=== PATIENT | female | born 1965 | race Caucasian/White ===

== ENCOUNTER 2018-01-24 10:30 | Inpatient (IN) | payer MEDICARE, MEDICAID ==
[~2018-01-24] VITALS: Ht 172.7 cm; Wt 83.9 kg
[2018-01-24] MEDS ORDERED: VITA1TAB56 PO (13:16)
[2018-01-24] MEDS ORDERED: BENZ1TAB7 PO (13:16)
[2018-01-24] MEDS ORDERED: FERR325T23 PO (13:16)
[2018-01-24] MEDS ORDERED: ACET1TAB14 PO (13:16)
[2018-01-24] MEDS ORDERED: AMPH30CA3 PO (13:16)
[2018-01-24] MEDS ORDERED: CYAN100096 PO (13:16)
[2018-01-24 13:30] VITALS: BP 131/78
[2018-01-24] MEDS ORDERED: MAGNESIUM HYDROXIDE 30 ML UDC PO PRN (14:30)
[2018-01-24] MEDS ORDERED: ACETAMINOPHEN 325 MG TABLET PO PRN (14:30)
[2018-01-24] MEDS ORDERED: MAG HYDROX/AL HYDROX/SIMETH 30 ML UDC PO PRN (14:30)
[2018-01-24] MEDS ORDERED: ZOLPIDEM TARTRATE 5 MG TABLET PO PRN (14:30)
[2018-01-24] MEDS ORDERED: ONDANSETRON HCL/PF 4 MG/2 ML VIAL IVP PRN (14:30)
[2018-01-24] MEDS ORDERED: VANCOMYCIN 1 GM in IV NS 0.9% 250 ML IV SCH ×4 (14:30)
[2018-01-24] MEDS ORDERED: HYDROCODONE/APAP 5/325MG 1 EACH TABLET PO PRN (14:30)
[2018-01-24] MEDS ORDERED: HYDROCODONE/APAP 10/325MG 1 EA TABLET PO PRN (14:30)
[2018-01-24] MEDS ORDERED: Z GUARD REMEDY 2 OZ OINT TP PRN (14:30)
[2018-01-24 15:27] LABS: CALCIUM, SERUM 8.7 mg/dL (8.5-10.1); CREATININE 0.9 mg/dL (0.6-1.3); POTASSIUM 4.1 mmol/L (3.5-5.1)
[2018-01-24] MEDS ORDERED: FEE PK DOSING 1 MIN EA MC ONE (15:53)
[2018-01-24 16:00] VITALS: BP 146/83
[2018-01-24] MEDS: BENZTROPINE MESYLATE (1 MG) 1 MG TABLET PO SCH (17:26)
[2018-01-24] MEDS: IV NS 0.9% 1,000 ML IV PRN (17:27)
[2018-01-24] MEDS: VANCOMYCIN 0.75 GM in IV NS 0.9% 250 ML IV SCH (17:30)
--- NOTE | 2018-01-24 18:30 | NUR ---
DIRECTOR OF OPERATIONS SUPPORT NOTE RECEIVED PT. PT IS A DIRECT ADMISSION FROM [facility]. PT IS BEING ADMITTED FOR CONTINUED TX OF LLE CELLULITIS WITH ABX THERAPY. A/OX4, NO S/S OF RESP DISTRESS OR SOB. NO C/O PAIN AT THIS TIME. WOUND NOTED ON LLE, R WRIST AND SCRATCHES NOTED ON ABDOMEN. IV SITE LOCATED ON LEFT AC 20G CURRENTLY SL. ADMISSION ORDERS FROM DR. JIMENES RECEIVED. SAFETY MEASURES IN PLACE, CALL LIGHT WITHIN REACH. WILL CONTINUE TO MONITOR.
--- NOTE | 2018-01-24 18:52 | NUR ---
RN CLOSING NOTE PT IN BED RESTING. NO S/S OF RESP DISTRESS OR SOB. NO C/O PAIN. PT WOUNDS LEFT OPEN TO AIR. WOUND CONSULT ORDERED. SAFETY MEASURES IN PLACE, CALL LIGHT WITHIN REACH. WILL ENDORSE TO NIGHT SHFIT FOR SYBIL.
--- NOTE | 2018-01-24 19:45 | NUR ---
RN INITIAL NOTES: RECEIVED REPORT FROM CRIS GÓMEZ. PT IN BED, AWAKE, A/O X3 ON RA RESPIRATION EVEN AND UNLABORED, IV ACCESS PATENT AND FLUSHING WELL, INFUSING WITH NS AT 100ML/HR. PT REFUSED TO HAVE HER PURSE CHECKED, EDUCATION PROVIDED TO THE PT, HEALTHCARE ASSOCIATE TO KEEP AN EYE TO PT, WILL SIT OUTSIDE ROOM. DISCUSSED PLAN OF CARE, SAFETY PRECAUTIONS FOR FALL INITIATED, CALL LIGHT IN REACH, WILL CONTINUE MONITORING PT
[2018-01-24 20:00] VITALS: BP 126/61
--- NOTE | 2018-01-24 21:33 | NUR ---
PRN NORCO 10/325: PT C/O 02/23 LEFT LEG PAIN REQUESTING FOR MEDICATION, PRN NORCO 10/325 MG TAB PO ADMINISTERED AT THIS TIME, EDUCATE PT REGARDING MEDICATION SIDE EFFECT, WILL CONTINUE TO MONITOR AND REASSESS
--- NOTE | 2018-01-25 01:04 | NUR ---
RN NOTES: SEEN PT SLEEPING COMFORTABLY, NO FACIAL GRIMACE NOTED
[2018-01-25] MEDS: VANCOMYCIN 0.75 GM in IV NS 0.9% 250 ML IV SCH ×3 (01:12→18:09)
[2018-01-25] MEDS: IV NS 0.9% 1,000 ML IV PRN (05:41)
--- NOTE | 2018-01-25 07:03 | NUR ---
RN CLOSING NOTES: PT IN BED, AWAKE, DENIES ANY PAIN OR DISCOMFORT AT THIS TIME, IV ACCESS ON LEFT AC REMAINS PATENT AND FLUSHING WELL, INFUSING WITH NS AT 100ML/HR. NO S/S OF REDNESS OR INFILTRATION ON IV SITE. VS REMAINS STABLE, NEEDS ATTENDED. SAFETY PRECAUTIONS FOR FALL REMAINS ENGAGED, CALL LIGHT IN REACH, WILL ENDORSE TO DAY RN FOR SYBIL.
[2018-01-25 07:29] LABS: BASOPHILS % (AUTO) 0.4 % (0.0-2.0); EOSINOPHILS % (AUTO) 1.5 % (0.0-6.0); HEMATOCRIT 36 % (33-45); HEMOGLOBIN 12.3 g/dL (11.5-14.8); LYMPHOCYTES # (AUTO) 1.7 /CMM (0.8-4.8); LYMPHOCYTES % (AUTO) 30.3 % (20.0-44.0); MEAN CORPUSCULAR HEMOGLOBIN 33 PG (26.0-33.0); MEAN CORPUSCULAR HGB CONC 34 g/dl (31.0-36.0); MEAN CORPUSCULAR VOLUME 94 fL (82-100); MONOCYTES # (AUTO) 0.4 /CMM (0.1-1.30); MONOCYTES % (AUTO) 6.8 % (2.0-12.0); NEUTROPHILS # (AUTO) 3.3 /CMM (1.8-8.9); PLATELET COUNT (AUTO) 258 /CMM (150-450); RDW COEFFICIENT OF VARIATION 13.5 (11.5-15.0); RED BLOOD CELL COUNT(AUTO) 3.77 MIL/uL (4.0-5.2); WHITE BLOOD COUNT (AUTO) 5.4 K/uL (4.3-11.0)
[2018-01-25 07:49] LABS: CALCIUM, SERUM 8.4 mg/dL (8.5-10.1); CREATININE 0.8 mg/dL (0.6-1.3); MAGNESIUM 1.8 mg/dL (1.8-2.4); PHOSPHORUS 3.9 mg/dL (2.5-4.9); POTASSIUM 4.1 mmol/L (3.5-5.1)
[2018-01-25 08:08] LABS: THYROID STIMULATING HORMONE 1.437 uIU/mL (0.358-3.74)
[2018-01-25 08:22] VITALS: BP 125/76
[2018-01-25] MEDS: FERROUS SULFATE (325 MG) 325 MG/TAB TABLET PO SCH (08:56)
[2018-01-25] MEDS: VITAMIN B COMP W-C 1 TAB TABLET PO SCH (08:56)
[2018-01-25] MEDS: BENZTROPINE MESYLATE (1 MG) 1 MG TABLET PO SCH ×3 (08:56→16:40)
--- NOTE | 2018-01-25 08:58 | NUR ---
MS RN NOTES Patient in bed, awake, A/O x 3. Left leg open wound, periwound area erythema, denies pain. IVC in Left AC with IVF NS infusing at 100ml/hr. Call light within reach. Will cont to monitor.
[2018-01-25 16:18] VITALS: BP 135/74
--- NOTE | 2018-01-25 18:39 | NUR ---
MS RN closing notes Patient ambulates independently, left lower leg cellulitis no fluid drainage, denies pain. Continued on IV antibiotic, afebrile during the shift. Maintained IVF NS at 100ml/hr. DC planning in AM per MD. Will endorse to oncoming RN.
--- NOTE | 2018-01-25 19:45 | NUR ---
MS RN NOTES RECEIVED ON BED A/O X3,NO SOB,IV ABX IN PROGRESS ON LEFT AC,SITE PATENT.NOTED DRY OPEN WOUND ON LEFT LOWER LEG,OPEN TO AIR,CLAIMED PAIN VIA LEFT UPPER ABDOMEN,TENDER TO THE TOUCH.CALL LIGHT IN REACH,NEEDS ANTICIPATED.
[2018-01-25 20:00] VITALS: BP_SYST 109; BP_DIAS 58; BP_DIAS 59
--- NOTE | 2018-01-25 20:00 | NUR ---
MS RN NOTES WENT DOWN TO SMOKE ACCOMPANIED BY VALDO CANO
--- NOTE | 2018-01-25 21:00 | NUR ---
MS RN NOTES IV SITE INFILTRATED,REFUSED TO HAVE A NEW SALINE LOCK RIGHT AWAY
--- NOTE | 2018-01-25 22:00 | NUR ---
MS RN NOTES TRIED TO PUT NEW SALINE LOCK BUT PATIENT PULLED HER ARM,UNSUCCESSFUL.REFUSED TO HAVE ANOTHER ONE.ICU NURSE WAS CALLED BUT SHE STILL REFUSED.EXPLAINED RISK AND BENEFITS FOR IV THERAPY BUT SHE DOESNT WANT TO LISTEN.SCREAM TO THE NURSE.
[2018-01-26] MEDS: VANCOMYCIN 0.75 GM in IV NS 0.9% 250 ML IV SCH ×2 (01:00→08:21)
--- NOTE | 2018-01-26 01:00 | NUR ---
MS RN NOTES VANCOMYCIN DOSE DUE AT THIS TIME HELD.NO IV ACCESS.PATIENT REFUSED SALINE LOCK.
--- NOTE | 2018-01-26 06:00 | NUR ---
MS RN NOTES PICTURES TAKEN THIS TIME ON WOUNDS,PATIENT AGREED WIT IT,EARLIER SHE REFUSED.
--- NOTE | 2018-01-26 06:08 | NUR ---
MS RN NOTES C/O PAIN 6/10 ON PAIN SCALE VIA LEFT DISTAL ABDOMEN,NORCO 5/325MG,1TAB PO GIVEN
--- NOTE | 2018-01-26 06:26 | NUR ---
MS RN NOTES STILL REFUSING IV SALINE LOCK.PREFERS PILL FORM OF ANTIBIOTICS.AMBULATE AD SHY.CALL LIGHT IN REACH,NEEDS ATTENDED.WILL ENDORSE TO DAY NURSE FOR SYBIL.
[2018-01-26 07:16] LABS: CALCIUM, SERUM 8.8 mg/dL (8.5-10.1); CREATININE 0.8 mg/dL (0.6-1.3); POTASSIUM 4.6 mmol/L (3.5-5.1)
--- NOTE | 2018-01-26 07:36 | NUR ---
MS/RN Patient received Patient received from rehab care assistant. Complaining of pain to left lower leg, norco given by previous shift, explained to patient that we need to give the medication time to work. Stated understanding. Safety measures in place, will continue to monitor and ensure safety.
[2018-01-26 07:50] VITALS: BP 116/64
[2018-01-26 08:00] VITALS: BP 116/64
[2018-01-26] MEDS: VITAMIN B COMP W-C 1 TAB TABLET PO SCH (08:21)
[2018-01-26] MEDS: BENZTROPINE MESYLATE (1 MG) 1 MG TABLET PO SCH ×2 (08:21→12:26)
[2018-01-26] MEDS: FERROUS SULFATE (325 MG) 325 MG/TAB TABLET PO SCH (08:21)
--- NOTE | 2018-01-26 09:00 | NUR ---
MS/RN Medications Morning medications administered as ordered.
--- NOTE | 2018-01-26 10:30 | NUR ---
MS/RN Refused skin assessment Patient refused for skin assessment and wound care, stating that she was going to go home today and did not want to be touched. Explained the importance or wound care, but still refusing.
--- NOTE | 2018-01-26 11:46 | NUR ---
MS/RN S/B Dr Menjivar Seen by Dr Menjivar - patient to be discharged to home today. Prescription written for oral antibiotics.
--- NOTE | 2018-01-26 13:40 | NUR ---
MS/RN Exit care Exit care prepared and signed by patient, copies provided along with medical record. Prescription copied and placed in chart. Name bands removed.
--- NOTE | 2018-01-26 14:00 | NUR ---
MS/biometrics technician Patient escorted to main lobby by ICE CREAM MAN.
[2018-01-26] MEDS ORDERED: CEPH-570 PO (14:12)
--- NOTE | 2018-01-26 14:54 | NUR ---
interlibrary loan services librarian consult was requested by Dr. Mckeon for homelessness. Pt is a 52 year old female who was admitted to [facility] for cellulitis. SW spoke to pt at bedside. Pt was alert and oriented x4. Pt reported that she was interested in finding a homeless penitentiary and having access transportation services. Pt said that she was "living in an in [place]" before she was admitted to [facility]. SW gathered food, medical, homeless resources, and an application for access patient transportation services. BABAR made several calls to many homeless shelters including [facility] [place] ([address] [place], [address]) and [facility] ([address] [place] [address]) but all shelters were full to capacity. By the time BABAR delivered the aforementioned resources and discharge options the patient had been discharged from the hospital and was no longer in her room.
== END 2018-01-26 14:00 | disposition home or self-care (01) | DRG 603 ==
LOC: MEDSG2 12:56
DX: L03.116 Cellulitis of left lower limb (principal); F90.9 Attention-deficit hyperactivity disorder, unspecified type; F32.9 Major depressive disorder, single episode, unspecified; F17.210 Nicotine dependence, cigarettes, uncomplicated; Z88.0 Allergy status to penicillin; S20.02XA Contusion of left breast, initial encounter; W20.8XXA Other cause of strike by thrown, projected or falling object, initial encounter; Y92.9 Unspecified place or not applicable
CPT/HCPCS: 36415; 80048-TC; 80061-TC; 80202-TC; 83735-TC; 84100-TC; 84443-TC; 85025-TC; 87081-TC; J3370; J7030; J7050; Z7610

== ENCOUNTER 2018-02-03 19:19 | Inpatient (IN) | payer MEDICARE, MEDICAID ==
[~2018-02-03] VITALS: Ht 170.2 cm; Wt 81.6 kg
[~2018-02-03 19:19] MED LIST: ACET1TAB14 PO; AMPH30CA3 PO; BENZ1TAB7 PO; CEPH-570 PO; CYAN100096 PO; FERR325T23 PO; VITA1TAB56 PO
[2018-02-03] MEDS ORDERED: IV NS 0.9% 1,000 ML BAG IV ONE (21:00)
[2018-02-03] MEDS ORDERED: CEFTRIAXONE 1 G in IV D5W 50 ML IV ONE (21:00)
[2018-02-03] MEDS ORDERED: KETOROLAC TROMETHAMINE INJ 30 MG/ML VIAL IV ONE (21:00)
--- NOTE | 2018-02-03 21:00 | NUR ---
TRIED TO START IV, UNSUCCESSFUL, PT VERBALLY ABUSIVE. RENALDO KIMBROUGH AWARE.
--- NOTE | 2018-02-03 21:23 | NUR ---
YANNI BLACK DNP PAGED FOR DR MOSCOSO
[2018-02-03] MEDS ORDERED: TDAP [DIPH/PERTUSSIS/TET] 0.5 ML VIAL IM ONE ×2 (21:30→22:09)
--- NOTE | 2018-02-03 21:45 | NUR ---
DALIA TORO STARTED SL ON LH, LABS DRAWN & SENT TO LAB.
[2018-02-03] MEDS ORDERED: CEFTRIAXONE 1 G VIAL ONE (21:57)
[2018-02-03] MEDS ORDERED: LORAZEPAM 1 MG TABLET ONE (21:58)
[2018-02-03] MEDS ORDERED: HYDROCODONE/APAP 5/325MG 1 EACH TABLET ONE (21:58)
[2018-02-03] MEDS ORDERED: LORAZEPAM 1 MG TABLET PO ONE (22:00)
[2018-02-03] MEDS ORDERED: HYDROCODONE/APAP 5/325MG 1 EACH TABLET PO ONE (22:00)
[2018-02-03] MEDS ORDERED: KETOROLAC TROMETHAMINE INJ 30 MG/ML VIAL ONE (22:09)
[2018-02-03 22:28] LABS: BASOPHILS % (AUTO) 0.4 % (0.0-2.0); EOSINOPHILS % (AUTO) 1.8 % (0.0-6.0); HEMATOCRIT 42 % (33-45); LYMPHOCYTES # (AUTO) 2.4 /CMM (0.8-4.8); LYMPHOCYTES % (AUTO) 37.3 % (20.0-44.0); MEAN CORPUSCULAR HEMOGLOBIN 31 PG (26.0-33.0); MEAN CORPUSCULAR HGB CONC 33 g/dl (31.0-36.0); MEAN CORPUSCULAR VOLUME 93 fL (82-100); MONOCYTES # (AUTO) 0.3 /CMM (0.1-1.30); MONOCYTES % (AUTO) 4.5 % (2.0-12.0); NEUTROPHILS # (AUTO) 3.6 /CMM (1.8-8.9); PLATELET COUNT (AUTO) 236 /CMM (150-450); RDW COEFFICIENT OF VARIATION 13.7 (11.5-15.0); RED BLOOD CELL COUNT(AUTO) 4.51 MIL/uL (4.0-5.2); WHITE BLOOD COUNT (AUTO) 6.5 K/uL (4.3-11.0)
[2018-02-03 22:40] LABS: CALCIUM, SERUM 8.7 mg/dL (8.5-10.1); CREATININE 0.7 mg/dL (0.6-1.3); POTASSIUM 4.3 mmol/L (3.5-5.1)
[2018-02-03 22:44] LABS: ALBUMIN 3.5 g/dL (3.4-5.0); BILIRUBIN,DIRECT 0.1 mg/dL (0.0-0.2); BILIRUBIN,TOTAL 0.6 mg/dL (0.2-1.0); TOTAL PROTEIN, SERUM 7.8 g/dL (6.4-8.2)
[2018-02-03 23:15] VITALS: BP 108/57
[2018-02-04] VITALS: BP 108/57
--- NOTE | 2018-02-04 00:37 | NUR ---
RECEIVE PT FRO E.R AT 02/03/18 2315 VIA Basic6 PT A/O X 3 NOT IN DISTRESS RESPIRATIONS EVEN AND UNLABORED NO N/V/D NOTED NO PAIN AT THIS TIME. HEAD TO TOE ASSESSMENT IS DONE LEFT LOWER LEG WOUND NOTED, DEFER TO WOUND CARE TEAM, SAFETY MEASURES IN PLACE. PT KEPT COMFORT DRY, AND CLEAN. WILL MONITOR THROUGHOUT THE SHIFT.
[2018-02-04] MEDS ORDERED: CODEINE PO PRN ×2 (01:30→07:00)
[2018-02-04] MEDS ORDERED: MAGNESIUM HYDROXIDE 30 ML UDC PO PRN (01:30)
[2018-02-04] MEDS ORDERED: ONDANSETRON HCL/PF 4 MG/2 ML VIAL IVP PRN (01:30)
[2018-02-04] MEDS ORDERED: ZOLPIDEM TARTRATE 5 MG TABLET PO PRN (01:30)
[2018-02-04] MEDS ORDERED: ACETAMINOPHEN PO PRN ×2 (01:30→07:00)
[2018-02-04] MEDS ORDERED: ACETAMINOPHEN 325 MG TABLET PO PRN (01:30)
[2018-02-04] MEDS ORDERED: Z GUARD REMEDY 2 OZ OINT TP PRN (01:30)
[2018-02-04] MEDS ORDERED: MAG HYDROX/AL HYDROX/SIMETH 30 ML UDC PO PRN (01:30)
[2018-02-04] MEDS ORDERED: ENOXAPARIN SODIUM 40 MG/0.4 ML DISP.SYRIN SQ ONE (02:00)
[2018-02-04] MEDS ORDERED: VANCOMYCIN 1 GM in IV NS 0.9% 250 ML IV ONE (02:30)
[2018-02-04] MEDS ORDERED: VANCOMYCIN 1 GM VIAL ONE (02:42)
--- NOTE | 2018-02-04 06:06 | NUR ---
MS RN CLOSING NOTES ASLEEP AND EASILY AWAKEN STABLE, NOT IN DISTRESS. RESPIRATION EVEN AND UNLABORED. KEPT CLEAN AND DRY AND COMFORTABLE, ALL NURSING CARE RENDERED. NEEDS ATTENDED AND ANTICIPATED, GOOD SKIN CARE PROVIDED. NO COMPLAIN OF PAIN. ON LOW BED AT ALL TIMES TO ENSURE SAFETY. SAFE HAZARD FREE ENVIRONMENT PROVIDED. CALL LIGHT WITHIN EASY TO REACH. WILL ENDORSE NEXT SHIFT CONTINUITY OF CARE.
[2018-02-04] MEDS ORDERED: FEE PK DOSING 1 MIN EA MC ONE (06:59)
[2018-02-04 07:26] LABS: BASOPHILS % (AUTO) 0.3 % (0.0-2.0); EOSINOPHILS % (AUTO) 3.1 % (0.0-6.0); HEMATOCRIT 40 % (33-45); HEMOGLOBIN 13.5 g/dL (11.5-14.8); LYMPHOCYTES # (AUTO) 2.1 /CMM (0.8-4.8); LYMPHOCYTES % (AUTO) 40.9 % (20.0-44.0); MEAN CORPUSCULAR HEMOGLOBIN 32 PG (26.0-33.0); MEAN CORPUSCULAR HGB CONC 34 g/dl (31.0-36.0); MEAN CORPUSCULAR VOLUME 95 fL (82-100); MONOCYTES # (AUTO) 0.3 /CMM (0.1-1.30); MONOCYTES % (AUTO) 6.3 % (2.0-12.0); NEUTROPHILS # (AUTO) 2.5 /CMM (1.8-8.9); NEUTROPHILS % (AUTO) 49.4 % (43.0-81.0); PLATELET COUNT (AUTO) 200 /CMM (150-450); RED BLOOD CELL COUNT(AUTO) 4.19 MIL/uL (4.0-5.2); WHITE BLOOD COUNT (AUTO) 5.1 K/uL (4.3-11.0)
--- NOTE | 2018-02-04 07:30 | NUR ---
RN MS NOTES PT IN BED, ASLEEP, EASY TO AROUSE, ALERT AND ORIENTED, NO COMPLAINT OF PAIN, NOT IN DISTRESS, CALL LIGHT WITHIN REACH, KEPT COMFORTABLE.
[2018-02-04 07:53] LABS: THYROID STIMULATING HORMONE 1.288 uIU/mL (0.358-3.74)
[2018-02-04 07:56] LABS: ALBUMIN 2.8 g/dL (3.4-5.0); BILIRUBIN,TOTAL 0.6 mg/dL (0.2-1.0); CALCIUM, SERUM 8.4 mg/dL (8.5-10.1); CREATININE 0.8 mg/dL (0.6-1.3); MAGNESIUM 1.7 mg/dL (1.8-2.4); PHOSPHORUS 3.4 mg/dL (2.5-4.9); POTASSIUM 3.8 mmol/L (3.5-5.1); TOTAL PROTEIN, SERUM 6.6 g/dL (6.4-8.2)
[2018-02-04 08:00] VITALS: BP 142/61
[2018-02-04] MEDS ORDERED: AMPHET ASP PO SCH (09:00)
[2018-02-04] MEDS ORDERED: D AMPHET PO SCH (09:00)
[2018-02-04] MEDS ORDERED: AMPHET PO SCH (09:00)
[2018-02-04] MEDS: BENZTROPINE MESYLATE (1 MG) 1 MG TABLET PO SCH ×3 (09:46→18:07)
[2018-02-04] MEDS: FERROUS SULFATE (325 MG) 325 MG/TAB TABLET PO SCH (09:47)
--- NOTE | 2018-02-04 10:33 | NUR ---
Air Hole Driller consult requested by Dr Fatima for homelessness. Pt is a 53 year old female who was admitted to [facility] for cellulitis. Pt was alert and oriented x4. SW informed pt that she has senior living options under her Medicare insurance coverage. Pt reported that she has previously lived in a senior living in [place], [place] and is interested in being placed in one again. Jr in case management was notified that pt wants senior care placement. SW is available if needed
[2018-02-04] MEDS: HYDROCODONE/APAP 10/325MG 1 EA TABLET PO PRN ×2 (10:43→18:10)
--- NOTE | 2018-02-04 10:58 | NUR ---
WOUND CARE CONSULT: PT SEEN BY PODIATRY AT THIS TIME. DEFER TO DPM FOR WOUND TREATMENT PLAN. CURRENT VALENTINE SCORE IS 19.
[2018-02-04] MEDS ORDERED: LIDOCAINE 1% INJ 50 ML MDV IJ ONE (11:00)
[2018-02-04] MEDS: VANCOMYCIN 0.75 GM in IV D5W 250 ML IV SCH ×2 (11:05→18:06)
[2018-02-04] MEDS ORDERED: LORAZEPAM 1 MG TABLET PO ONE (11:30)
--- NOTE | 2018-02-04 11:51 | NUR ---
RN MS NOTES S/P LEFT LOWER LEG WOUND DEBRIDEMENT BY DR. CHIN, PT TOLERATED PROCEDURE WELL, PAIN MEDS AND ATIVAN GIVEN PRIOR TO PROCEDURE.
[2018-02-04] MEDS: Magnesium 1GM/D5W 100ML PREMIX 100 ML IV SCH ×2 (12:13→13:50)
[2018-02-04 16:00] VITALS: BP 111/58
[2018-02-04] MEDS: CLOTRIMAZOLE 1% 15 GM TUBE TP SCH (18:09)
--- NOTE | 2018-02-04 19:25 | NUR ---
RN NOTES RECEIVED PT AWAKE, HOB ELEVATED, ALERT AND ORIENTED X4, ON ROOM AIR AND TOLERATED WELL. DRESSING ON LEFT LOWER LEG INTACT, PAIN AT TOLERABLE LEVEL AT THIS TIME 09/23. IV ACCESS ON LEFT HAND PATENT AND INTACT WITH ONGOING VANCOMYCIN INFUSING WELL. PLAN OF CARE DISCUSSED WITH THE PT AND VERBALIZED UNDERSTANDING. KEPT COMFORTABLE AND ATTENDED. WILL CONTINUE TO MONITOR PT.
--- NOTE | 2018-02-04 19:30 | NUR ---
RN MS NOTES PT IN BED, AWAKE, ALERT AND ORIENTED, PAIN MEDICATION GIVEN FOR PAIN MANAGEMENT, NOT IN DISTRESS, PM MEDS GIVEN ORDERED, WITH GOOD PO INTAKE, ALL NEEDS ATTENDED.
[2018-02-04 20:00] VITALS: BP 115/56
[2018-02-04] MEDS: ENOXAPARIN SODIUM 40 MG/0.4 ML DISP.SYRIN SQ SCH (21:11)
[2018-02-04 22:00] VITALS: BP 115/56
[2018-02-05] MEDS: VANCOMYCIN 0.75 GM in IV D5W 250 ML IV SCH ×3 (02:06→17:26)
--- NOTE | 2018-02-05 06:14 | NUR ---
RN NOTES PT SLEPT WELL OVERNIGHT, VITAL SIGNS STABLE, AFEBRILE. AMBULATES WITH STEADY GAIT, NO COMPLAIN OF PAIN WITHIN THE SHIFT. NO SIGNIFICANT CHANGE IN CONDITION NOTED. WILL ENDORSE TO MORNING RN FOR CONTINUITY OF CARE.
[2018-02-05 07:09] LABS: CALCIUM, SERUM 8.1 mg/dL (8.5-10.1); CREATININE 0.8 mg/dL (0.6-1.3); MAGNESIUM 1.9 mg/dL (1.8-2.4); POTASSIUM 4.3 mmol/L (3.5-5.1)
--- NOTE | 2018-02-05 07:30 | NUR ---
RN MS NOTES PT IN BED, ASLEEP, EASY TO AROUSE, ALERT AND ORIENTED, NO COMPLAINT OF PAIN OR ANY DISCOMFORT, RESPIRATIONS NORMAL, CALL LIGHT WITHIN REACH.
[2018-02-05 08:00] VITALS: BP 122/50
[2018-02-05] MEDS: FERROUS SULFATE (325 MG) 325 MG/TAB TABLET PO SCH (08:56)
[2018-02-05] MEDS: BENZTROPINE MESYLATE (1 MG) 1 MG TABLET PO SCH ×3 (08:56→16:40)
[2018-02-05] MEDS: CLOTRIMAZOLE 1% 15 GM TUBE TP SCH ×2 (08:58→16:40)
[2018-02-05] MEDS: CADEXOMER IODINE 40 GM TUBE TP SCH (08:58)
--- NOTE | 2018-02-05 13:00 | NUR ---
RN MS NOTES PT IN BED, ASLEEP, EASY TO AROUSE, RESPIRATIONS NORMAL AND NOT LABORED, NO SIGN OF PAIN OR ANY DISCOMFORT, PATIENT EDUCATION PROVIDED REGARDING SMOKING CESSATION, VERBALIZED UNDERSTANDING, CALL LIGHT WITHIN REACH, NEEDS ATTENDED,
--- NOTE | 2018-02-05 13:29 | NUR ---
RN MS NOTES PER PT SHE IS NOT TAKING ADDERAL ANYMORE, INFORMED, MED D/C'D.
[2018-02-05] MEDS: HYDROCODONE/APAP 10/325MG 1 EA TABLET PO PRN (15:30)
[2018-02-05 16:00] VITALS: BP 122/76
--- NOTE | 2018-02-05 18:32 | NUR ---
RN MS NOTES PT IN BED, AWAKE, ALERT AND ORIENTED, WATCHING TV WHILE EATING DINNER, NO COMPLAINT OF PAIN, RESPIRATIONS NORMAL, DUE MEDS GIVEN ORDERED, WOUND TREATMENT AND DRESSING CHANGE DONE TO LEFT LOWER LEG WOUND, REINFORCED DRESSING NEEDED, CALL LIGHT WITHIN REACH, NEEDS ATTENDED.
--- NOTE | 2018-02-05 19:15 | NUR ---
MS/VOCATIONAL PLACEMENT SPECIALIST; RECEIVED PT IN BED AWAKE, ALERT AND ORIENTED. BREATHING NON LABORED. DENIES PAIN. LT LOWER LEG DRESSING INTACT AND DRY. HL ON LH INTACT AND PATENT. PT WANTS TO SMOKE. I TOLD THE PT LATER ON BECAUSE THE BREAD RACKER IS STILL TAKING VITAL SIGNS AND I WILL TELL THE BREAD RACKER THAT YOU WANT TO SMOKE. BED ON LOWER POSITION AND LOCKED FOR SAFETY. SIDE RAILS X2 ARE UP FOR SAFET. WILL CONTINUE TO MONITOR.
[2018-02-05 20:00] VITALS: BP 124/64
--- NOTE | 2018-02-05 20:15 | NUR ---
MS/INSPECTOR GOVERNMENT PROPERTY; PT WENT TO SMOKE ACCOMPANIED BY THE WIRE DRAWING MACHINE OPERATOR.
--- NOTE | 2018-02-05 20:30 | NUR ---
MS/CHICKEN DRESSER; PT CAME BACK FROM SMOKING ACCOMPANIED BY THE BUSINESS EXCELLENCE MANAGER. TO BED.
[2018-02-05] MEDS: ENOXAPARIN SODIUM 40 MG/0.4 ML DISP.SYRIN SQ SCH (21:03)
--- NOTE | 2018-02-05 22:15 | NUR ---
MS/DECORATING INSPECTOR; PT IN BED SLEEPING. BREATHING NON LABORED. WILL CONTINUE TO MONITOR.
--- NOTE | 2018-02-05 22:45 | NUR ---
MS/SCREEN PRINT OPERATOR; PT'S FAMILY CALLED HE CLAIMED HE IS THE ASKING HOW IS THE PT I TOLD HIM THE PT IS SLEEPING . THEN HE OK, THANK YOU.
[2018-02-06] MEDS: VANCOMYCIN 0.75 GM in IV D5W 250 ML IV SCH ×2 (01:06→09:08)
--- NOTE | 2018-02-06 06:47 | NUR ---
MS/AIR CONDITIONING MECHANIC; PT SLEPT FAIRLY . DENIES ANY PAIN. VOIDING IN THE BATHROOM. WILL ENDORSE TO THE DAY SHIFT RN FOR CONTINUITY OF CARE. CALL LIGHT WITHIN REACH.
[2018-02-06 07:09] LABS: CALCIUM, SERUM 8.8 mg/dL (8.5-10.1); CREATININE 0.8 mg/dL (0.6-1.3); POTASSIUM 4.2 mmol/L (3.5-5.1)
--- NOTE | 2018-02-06 07:10 | NUR ---
MS RN NOTES PATIENT IN BED EYES CLOSED, EASILY AROUSABLE. NO ACUTE DISTRESS NOTED. RESPOND TO VERBAL AND TACTILE STIMULI. IV ACCESS PATENT AND INTACT. SAFETY MEASURES IN PLACE. CALL LIGHT WITHIN REACH. WILL CONTINUE TO MONITOR ACCORDINGLY.
[2018-02-06 08:00] VITALS: BP 109/62
[2018-02-06] MEDS: BENZTROPINE MESYLATE (1 MG) 1 MG TABLET PO SCH ×2 (08:58→13:28)
[2018-02-06] MEDS: CADEXOMER IODINE 40 GM TUBE TP SCH (08:58)
[2018-02-06] MEDS: FERROUS SULFATE (325 MG) 325 MG/TAB TABLET PO SCH (08:58)
[2018-02-06] MEDS: CLOTRIMAZOLE 1% 15 GM TUBE TP SCH (08:59)
[2018-02-06] MEDS ORDERED: CADE40GE2 TP (09:35)
[2018-02-06] MEDS ORDERED: CLOT15CR35 TP (09:35)
[2018-02-06] MEDS ORDERED: CLIN300C11 PO (09:35)
--- NOTE | 2018-02-06 09:42 | NUR ---
MS RN NOTES SEEN AND EVALUATED BY DR GONZALEZ WITH NEW ORDERS MADE. NOTED AND CARRIED OUT.
--- NOTE | 2018-02-06 10:55 | NUR ---
ADDENDUM ISOLATION PRECAUTION IN PLACE.
--- NOTE | 2018-02-06 10:55 | NUR ---
MS RN NOTES RECEIVED LEFT WOUND CULTURE RESULT POSITIVE MRSA, NOTIFIED DR ROSA MARIA GONZALEZ, NO NEW ORDERS MADE. PATIENT MADE AWARE.
--- NOTE | 2018-02-06 13:30 | NUR ---
MS RN NOTES PATIENT DISCHARGE TO [facility] WITH STABLE VITAL SIGNS VIA AMBULANCE IN A GURNEY ACCOMPANIED BY 2 EMT PERSONNEL. NO ACUTE DISTRESS NOTED. DISCHARGE INSTRUCTIONS GIVEN TO THE PATIENT, VERBALIZED UNDERSTANDING INCLUDING NEW MEDICATIONS. ALL BELONGINGS ACCOUNTED FOR. NEEDS ATTENDED AND ANTICIPATED. IV ACCESS REMOVED, NO BLEEDING OR SWELLING OR REDNESS NOTED. REPORT GIVEN TO TREY GÓMEZ. DISCHARGE PAPERWORK HANDED OVER TO EMT PERSONNEL.
== END 2018-02-06 14:27 | DRG 572 ==
LOC: ER 19:19 → MED 21:50
PROVIDERS: ADMIT Nurse Practitioner Acute Care; ATTEND Nurse Practitioner Acute Care
PROC: 0JBP0ZZ Excision of Left Lower Leg Subcutaneous Tissue and Fascia, Open Approach (ICD-10-PCS; principal; 2018-02-04)
DX: L03.116 Cellulitis of left lower limb (principal); F90.9 Attention-deficit hyperactivity disorder, unspecified type; Z91.19 Patient's noncompliance with other medical treatment and regimen; F32.9 Major depressive disorder, single episode, unspecified; Z79.899 Other long term (current) drug therapy; R74.0 Nonspecific elevation of levels of transaminase and lactic acid dehydrogenase [LDH]; I73.9 Peripheral vascular disease, unspecified; Z59.0 Homelessness; Z72.0 Tobacco use
CPT/HCPCS: 36415; 80048-TC; 80053-TC; 80076-TC; 80202-TC; 83605-TC; 83735-TC; 84100-TC; 84443-TC; 85025-TC; 87040-TC; 87070-TC; 87081-TC; 90715; A4606; A6402; J0696; J1650; J1885; J3370; J3475; J3490; J7030; J7050; J7060; Z7610